=== PATIENT | male | born 1970 | race Caucasian/White ===

== ENCOUNTER 2023-11-25 10:51 | Observation (INO) ==
[2023-11-25] MEDS: SODIUM CHLORIDE 0.9% 1,000 ML IV ONE (11:19)
[2023-11-25] MEDS: KETOROLAC TROMETHAMINE 15 MG/ML VIAL IV STA ×2 (11:20→12:12)
[2023-11-25] MEDS: ONDANSETRON INJ 2 MG/ML 2 ML VIAL IV STA (11:20)
[2023-11-25 12:13] LABS: Basophils # (auto) 0.05 K/uL (0.00-0.20); Basophils % (auto) 0.3 %; Eosinophils # (auto) 0.01 K/uL (0.00-0.50); Eosinophils % (auto) 0.1 %; Hemoglobin 15.1 g/dl (14.0-18.0); Immature Granulocytes # (auto) 0.08 K/uL (0.01-0.20); Immature Granulocytes % (auto) 0.5 %; Lymphocytes # (auto) 1.65 K/uL (1.20-3.40); Lymphocytes % (auto) 9.7 %; Mean Corpuscular Hemoglobin 30.9 pg (25.0-34.0); Mean Corpuscular Hgb Conc 34.3 g/dL (32.0-36.0); Mean Platelet Volume 9.6 fL (9.4-12.4); Monocytes # (auto) 1.36 K/uL (0.11-0.59); Neutrophils # (auto) 13.94 K/uL (1.40-6.50); Neutrophils % (auto) 81.4 %; Platelet Count 270 K/uL (130-400); RDW Coefficient of Variation 12.4 % (11.5-14.5); RDW Standard Deviation 40.8 fL (36.4-46.3); Red Blood Count 4.89 M/uL (4.70-6.10); White Blood Count 17.09 K/ul (4.8-10.8)
[2023-11-25 12:15] LABS: Albumin Level 4.2 gm/dl (3.4-5.0); BUN Creatinine Ratio 10.4 (10-20); Bilirubin Direct 0.2 mg/dl (0-0.2); Bilirubin,Total 1.3 mg/dl (0.2-1.0); Calcium 8.9 mg/dl (8.6-10.3); Creatinine Clr Calc Pharmacy 82.8 ml/min; Est GFR (African American) 83.2 ml/min; Est GFR (Non-African American) 71.7 ml/min; Potassium 3.6 mmol/L (3.5-5.1); Total Protein 6.9 gm/dl (6.0-8.3)
[2023-11-25 12:51] LABS: Appearance Urine Clear (Clear); Bacteria Urine Automated None Seen (None Seen); Bilirubin Urine Negative (Negative); Blood Urine 3+ (Negative); Cast Urine Automated 0-2 /lpf (0-2); Color Urine Dark Yellow; Epithelial Cell Urine Auto 0-2 /hpf (0-2); Glucose Urine UA Negative (Negative); Ketones Urine 1+ (Negative); Leukocyte Esterase Urine 1+ (Negative); Nitrite Urine Negative (Negative); Protein Urine 1+ (Negative); RBC Urine Automated >20 /hpf (0-2); Specific Gravity Urine 1.023 (1.000-1.030); Urobilinogen Urine Negative (Negative); pH Urine 6.5 (4.5-7.5)
--- NOTE | 2023-11-25 13:03 | CT Scan Report ---
CT abd pelvis wo con CLINICAL HISTORY: L flank pain TECHNIQUE: Helical axial images of the abdomen and pelvis were obtained. Automated dose lowering tech niques and/or adjustment according to patient size were utilized for this exam. This exam was perfor med without intravenous contrast. CT DOSE: 1207.66 mGy.cm COMPARISON: None available at the time of this dictation. FINDINGS: Lower chest: No acute abnormality. Liver: Unremarkable. No focal lesions are seen. Gallbladder and biliary tree: No calcified gallstones. Normal caliber wall. No intra- or extrahepatic biliary ductal dilation. Pancreas: Unremarkable, no focal lesions. Spleen: Unremarkable. Adrenals: Unremarkable. Kidneys and ureters: Left hydronephrosis and hydroureter with a 5 mm stone in the proximal ureter. Ad ditional nonobstructive stones are seen. Bladder: Unremarkable. Reproductive organs: Unremarkable. Bowel: A hiatal hernia is seen. The appendix is normal. Lymph nodes Retroperitoneal: Unremarkable. Pelvic: Unremarkable. Mesenteric: Unremarkable. Peritoneum: Normal. Vessels: Atherosclerotic calcifications are seen. Abdominal wall: Bilateral fat-containing inguinal hernias are seen. Bones: Degenerative changes in the visualized spine. IMPRESSION: Left hydronephrosis and hydroureter with a 5 mm obstructive stone in the proximal ureter. ACT 112: Negative or not required by law. Electronically signed by: Feliz Pitts M.D. 11/25/2023 1:01 PM
--- NOTE | 2023-11-25 14:16 | History & Physical Report ---
Date of Service November 25, 2023 Assessment & Plan (1) Hydronephrosis with urinary obstruction due to ureteral calculus: Plan: This is a 53 y/o male with a history of nephrolithiasis who presents to the ED today with left flank pain x 2 days that is worsening. Work-up in the ED shows a 5 mm obstructing proximal ureteral stone with associated hydronephrosis and hydroureter. Creatinine was 1.15 but unclear what pt's baseline is since new to this system. Afebrile but noted to have a leukocytosis of 17.09, which may be reactive, may be related to early infection. - Admit to med surg - Urine culture pending - Empiric antibiotics with Cipro for now - Consult urology - will make NPO after midnight in case intervention required - Labs in the AM - CBC, BMP - Continue tamsulosin, anti-emetics - Pain control - Toradol ordered since worked well in the ED - Nicotine patch - smokes 1 PPD - Strain urine Plan Pt seen and reviewed with collaborating physician, Dr. Kunz. Plan of care discussed and as outlined above. Code status: full code DVT prophylaxis: SCDs Admit to med surg for urologic evaluation and pain control - failed trial of outpatient management Tianna Young PA-C History of Present Illness Chief Complaint: left flank pain, vomiting Primary Care Provider: Jonathan Davis DO This is a 53 y/o male with a history of nephrolithiasis who presents to the ED today with left flank pain x 2 days that is worsening. Pt started with pain in the left flank area two nights ago. He has a history of kidney stones twice in the past, which felt similar. Last episode was a few years ago. Denies prior urologic evaluation or need for intervention with prior stones. Due to the severity of the pain, he was seen in the ED at [place] yesterday and diagnosed with a 6 mm stone. He was sent home with naproxen BID, tamsulosin daily, and metoclopramide QID. He has been taking these as prescribed but reports minimal improvement in the pain, was up most of last night due to the severity of his symptoms. He reports multiple episodes of non-bloody emesis. He has noted chills but denies documented fever. Denies dysuria, hematuria, urinary frequency. Work- up in the ED revealed a 5 mm obstructing stone. His pain was improved with Toradol x 2 doses but due to the severity of the pain at home, he was referred for admission for symptom management and urologic evaluation. Home Medications Medication Instructions Recorded Confirmed Type metoclopramide HCl 5 mg tablet 5 mg PO QID 11/25/23 11/25/23 History naproxen 375 mg tablet 375 mg PO BID 11/25/23 11/25/23 History tamsulosin 0.4 mg capsule 0.4 mg PO DAILY 11/25/23 11/25/23 History Past Med/Surg History Problem List (Updated 11/25/23 @ 14:56 by Mike Vines MD) Hydronephrosis with urinary obstruction due to ureteral calculus (Acute) Medical History (Updated 11/25/23 @ 14:56 by Mike Vines MD) Nephrolithiasis Surgical History (Updated 11/25/23 @ 14:14 by Yisel Young PA-C) History of knee surgery History of shoulder surgery Family History (Updated 11/25/23 @ 14:15 by Yisel Young PA-C) Mother Nephrolithiasis Social History (Updated 11/25/23 @ 14:15 by Yisel Young PA-C) Smoking Status: Current every day smoker Tobacco Type: Cigarettes packs per day: 1; Hx Alcohol Use: Yes Alcohol Intake Frequency: 2-4 x/Month Hx Substance Use: Yes Non-Prescribed Medications: Marijuana Non-Prescribed Medications Comment: occasional Preferred Language: [place] current occupational status: employed 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 Feels Safe at Home: Yes Review of Systems Review of Systems: All systems reviewed & are unremarkable except as noted in HPI & below Constitutional: + chills and + fatigue; no fever and no sweats Ear, Nose, Mouth, Throat: no nasal congestion and no sore throat Respiratory: no cough and no dyspnea Cardiovascular: no chest pain, no palpitations and no syncope Gastrointestinal: + nausea and + vomiting; no diarrhea/loo se stools Genitourinary: + flank pain; no dysuria or no hematuria Musculoskeletal: + back pain; no neck pain Integumentary: no rash Neurologic: no dizziness, no headache(s) and no confusion Physical Exam Physical Exam: General: awake, alert, NAD HEENT: no scleral icterus, moist oral mucosa Neck: supple, trachea midline Heart: RRR, no M/G/R Lungs: CTA bilaterally, no W/R/R Abdomen: soft, +BS, mild left flank tenderness but o/w non-tender, no CVA tenderness Extremities: no pedal edema, distal pulses intact and equal Skin: warm, dry, no jaundice or rashes Neurologic: moving all extremities, no focal deficits, no confusion, no dysarthria Results & Data Results & Data Vital Signs (Past 12 Hours) Vital Signs Temp Pulse Pulse Resp BP BP Pulse Ox 11/25/23 14:00 76 21 11/25/23 14:00 116/88 11/25/23 14:00 116/88 11/25/23 13:57 74 20 11/25/23 13:48 78 17 11/25/23 13:30 81 17 11/25/23 13:30 143/93 H 11/25/23 13:30 143/93 H 11/25/23 13:21 83 16 11/25/23 13:12 70 18 11/25/23 13:07 156/97 H 11/25/23 13:07 156/97 H 11/25/23 13:06 88 19 11/25/23 13:03 71 17 96 11/25/23 12:54 69 16 97 11/25/23 12:52 71 18 172/103 H 96 11/25/23 12:45 72 16 96 11/25/23 12:32 62 11/25/23 12:21 73 18 91 11/25/23 12:15 65 12 98 11/25/23 12:00 71 17 100 11/25/23 11:51 68 14 90 11/25/23 11:33 68 15 98 11/25/23 11:21 73 15 98 11/25/23 11:12 79 18 96 11/25/23 11:03 66 17 97 11/25/23 10:52 100 11/25/23 10:52 36.6 C 66 18 192/113 H 99 O2 Del Method 11/25/23 14:00 11/25/23 14:00 11/25/23 14:00 11/25/23 13:57 11/25/23 13:48 11/25/23 13:30 11/25/23 13:30 11/25/23 13:30 11/25/23 13:21 11/25/23 13:12 11/25/23 13:07 11/25/23 13:07 11/25/23 13:06 11/25/23 13:03 11/25/23 12:54 11/25/23 12:52 Room Air 11/25/23 12:45 11/25/23 12:32 11/25/23 12:21 11/25/23 12:15 11/25/23 12:00 11/25/23 11:51 11/25/23 11:33 11/25/23 11:21 11/25/23 11:12 Room Air 11/25/23 11:03 11/25/23 10:52 11/25/23 10:52 Laboratory Results Lab Results 11/25/23 11/25/23 Range/Units 11:30 12:20 WBC 17.09 H (4.8-10.8) K/ul RBC 4.89 (4.70-6.10) M/uL Hgb 15.1 (14.0-18.0) g/dl Hct 44.0 (42.0-52.0) % MCV 90.0 (80.0-100.0) fL MCH 30.9 (25.0-34.0) pg MCHC 34.3 (32.0-36.0) g/dL RDW Std Deviation 40.8 (36.4-46.3) fL RDW Coeff of Luis Enrique 12.4 (11.5-14.5) % Plt Count 270 (130-400) K/uL MPV 9.6 (9.4-12.4) fL Immature Gran % (Auto) 0.5 % Neut % (Auto) 81.4 % Lymph % (Auto) 9.7 % [place] % (Auto) 8.0 % Eos % (Auto) 0.1 % Baso % (Auto) 0.3 % Neut # (Auto) 13.94 H (1.40-6.50) K/uL Lymph # (Auto) 1.65 (1.20-3.40) K/uL [place] # (Auto) 1.36 H (0.11-0.59) K/uL Eos # (Auto) 0.01 (0.00-0.50) K/uL Baso # (Auto) 0.05 (0.00-0.20) K/uL Immature Gran # (Auto) 0.08 (0.01-0.20) K/uL Sodium 136 (136-145) mmol/L Potassium 3.6 (3.5-5.1) mmol/L Chloride 105 (98-107) mmol/L Carbon Dioxide 23 (21-32) mmol/L Anion Gap 8 (3-11) BUN 12 (6-23) mg/dl Creatinine 1.15 (0.6-1.4) mg/dl Est Cr Clr Drug Dosing 82.8 ml/min Est GFR ( Amer) 83.2 ml/min Est GFR (Non-Af Amer) 71.7 ml/min BUN/Creatinine Ratio 10.4 (10-20) Glucose 120 H (70-99(Fasting)) mg/dl Calcium 8.9 (8.6-10.3) mg/dl Total Bilirubin 1.3 H (0.2-1.0) mg/dl Direct Bilirubin 0.2 (0-0.2) mg/dl AST 18 (13-39) U/L ALT 12 (7-52) U/L Alkaline Phosphatase 54 (34-104) U/L Total Protein 6.9 (6.0-8.3) gm/dl Albumin 4.2 (3.4-5.0) gm/dl Lipase 8 L (11-82) U/L Urine Color Dark Yellow Urine Appearance Clear (Clear) Urine pH 6.5 (4.5-7.5) Ur Specific [place] 1.023 (1.000-1.030) Urine Protein 1+ H (Negative) Urine Glucose (UA) Negative (Negative) Urine Ketones 1+ H (Negative) Urine Blood 3+ H (Negative) Urine Nitrite Negative (Negative) Urine Bilirubin Negative (Negative) Urine Urobilinogen Negative (Negative) Ur Leukocyte Esterase 1+ H (Negative) Urine WBC (Auto) 11-20 H (0-5) /hpf Urine RBC (Auto) >20 H (0-2) /hpf U Hyaline Cast (Auto) 0-2 (0-2) /lpf U Epithel Cells (Auto) 0-2 (0-2) /hpf Urine Bacteria (Auto) None Seen (None Seen) Diagnostic Findings Abdomen/Pelvis CT 11/25/23 11:36 CT abd pelvis wo con CLINICAL HISTORY: L flank pain TECHNIQUE: Helical axial images of the abdomen and pelvis were obtained. Automated dose lowering techniques and/or adjustment according to patient size were utilized for this exam. This exam was performed without intravenous cont rast. CT DOSE: 1207.66 mGy.cm COMPARISON: None available at the time of this dictation. FINDINGS: Lower chest: No acute abnormality. Liver: Unremarkable. No focal lesions are seen. Gallbladder and biliary tree: No calcified gallstones. Normal caliber wall. No intra- or extrahepatic biliary ductal dilation. Pancreas: Unremarkable, no focal lesions. Spleen: Unremarkable. Adrenals: Unremarkable. Kidneys and ureters: Left hydronephrosis and hydroureter with a 5 mm stone in the proximal ureter. Additional nonobstructive stones are seen. Bladder: Unremarkable. Reproductive organs: Unremarkable. Bowel: A hiatal hernia is seen. The appendix is normal. Lymph nodes Retroperitoneal: Unremarkable. Pelvic: Unremarkable. Mesenteric: Unremarkable. Peritoneum: Normal. Vessels: Atherosclerotic calcifications are seen. Abdominal wall: Bilateral fat-containing inguinal hernias are seen. Bones: Degenerative changes in the visualized spine. IMPRESSION: Left hydronephrosis and hydroureter with a 5 mm obstructive stone in the proximal ureter. ACT 112: Negative or not required by law. Electronically signed by: Feliz Pitts M.D. 11/25/2023 1:01 PM Medications Administered Discontinued Medications Sodium Chloride (Nss) 1,000 mls @ 999 mls/hr IV .Q1H1M ONE Stop: 11/25/23 12:12 Last Infusion: 11/25/23 12:41 Dose: Infused Documented By: Admin: 11/25/23 11:19 Dose: 999 mls/hr Documented By: JOEL Ketorolac Tromethamine (Ketorolac Tromethamine 15 Mg/Ml Vial) 15 mg IV NOW STA Stop: 11/25/23 11:13 Last Admin: 11/25/23 11:20 Dose: 15 mg Documented By: JOEL Ketorolac Tromethamine (Ketorolac Tromethamine 15 Mg/Ml Vial) 15 mg IV NOW STA Stop: 11/25/23 12:05 Last Admin: 11/25/23 12:12 Dose: 15 mg Documented By: JOEL Ondansetron HCl (Ondansetron Inj 2 Mg/Ml 2 Ml Vial) 4 mg IV NOW STA Stop: 11/25/23 11:13 Last Admin: 11/25/23 11:20 Dose: 4 mg Documented By: JOEL Supervising Physician Co-Signing Physician Notes Attending addendum: The patient was seen and examined in emergency room in presence of the He has been complaining of left flank and back pain for the last few days Was in [place] ER and was sent home Pain continued without any frequency or hematuria noted and does not have any fever and no chills Denies any other significant symptoms On examination Lying in bed comfortably following intravenous pain medication Hemodynamically stable Chest-clear to auscultation bilaterally Heart-S1-S2, regular Abdomen-tender in the left flank and no tenderness in the left renal angle, bowel sound present Extremities-negative for any edema [employer]-alert, awake and oriented x 3 His admission labs and imaging studies reviewed Had increased white count of 17,000 CT of the abdomen pelvis showed left hydronephrosis and hydroureter with 5 mm obstructive stone in the proximal ureter Patient started on intravenous ciprofloxacin and pain medication Urology has been consulted Agree with and take the full responsibility of the assessment and plan as outlined above by MILTON Moreno Dr
--- NOTE | 2023-11-25 14:56 | Emergency Department Note ---
History of Present Illness General Chief Complaint: Kidney Stone Stated Complaint: POSSIBLE KIDNEY STONE Time Seen by Provider: 11/25/23 10:58 History of Present Illness Provider Complaint: flank pain Onset (ago): 1 week(s) Pain Consistency: intermittent Location: L flank Radiation: LLQ Severity: severe Maximum Pain Intensity: 10 Current Pain Intensity: 9 Quality: + stabbing and + sharp Relieved By: + nothing Exacerbated By: + other (Urinating) Context: + history of similar episodes (Diagnosed with kidney stone at [place] [facility]); no foreign travel, no possible food poisoning, no sick contacts, no recent antibiotic use, no recent surgery/procedure or no recent injury Associated Symptoms: + nausea and + vomiting; no fever, no chills, no dysuria, no hematemesis, no melena, no hematuria, no chest pain and no breathing difficulty Home Medications Medication Instructions Recorded Confirmed Type metoclopramide HCl 5 mg tablet 5 mg PO QID 11/25/23 11/25/23 History naproxen 375 mg tablet 375 mg PO BID 11/25/23 11/25/23 History tamsulosin 0.4 mg capsule 0.4 mg PO DAILY 11/25/23 11/25/23 History Past Med/Surg History Problem List (Updated 11/25/23 @ 14:56 by Mike Vines MD) Hydronephrosis with urinary obstruction due to ureteral calculus (Acute) Medical History (Updated 11/25/23 @ 14:56 by Mike Vines MD) Nephrolithiasis Surgical History (Updated 11/25/23 @ 14:14 by Yisel Young PA-C) History of knee surgery History of shoulder surgery Family History (Updated 11/25/23 @ 14:15 by Yisel Young PA-C) Mother Nephrolithiasis Social History (Updated 11/25/23 @ 14:15 by Yisel Young PA-C) Smoking Status: Current every day smoker Tobacco Type: Cigarettes packs per day: 1; Hx Alcohol Use: Yes Alcohol Intake Frequency: 2-4 x/Month Hx Substance Use: Yes Non-Prescribed Medications: Marijuana Non-Prescribed Medications Comment: occasional Preferred Language: Monegasque current occupational status: employed 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 Feels Safe at Home: Yes Physical Exam 2 Vital Signs: Vital Signs - 24 hr 11/25/23 10:52 11/25/23 10:52 11/25/23 11:03 Temperature 36.6 C Temperature Source Oral Pulse Rate 66 66 Pulse Rate [Apical ] Pulse Rate from Sp O2 Sensor 68 Respiratory Rate 18 17 Blood Pressure 192/113 H Blood Pressure [Le ft Arm] Blood Pressure Taniya n 139 Blood Pressure Taniya n [Left Arm] Pulse Oximetry 99 100 97 Oxygen Delivery Me thod Sepsis Recent Feve r Within 48 Hours No Sepsis New/Unexpla ined Change in Men delicia Status N/A Sepsis Action Take n by Nursing No Action Required 11/25/23 11:12 11/25/23 11:21 11/25/23 11:33 Temperature Temperature Source Pulse Rate 79 73 68 Pulse Rate [Apical ] Pulse Rate from Sp O2 Sensor 74 67 Respiratory Rate 18 15 15 Blood Pressure Blood Pressure [Le ft Arm] Blood Pressure Taniya n Blood Pressure Taniya n [Left Arm] Pulse Oximetry 96 98 98 Oxygen Delivery Me thod Room Air Sepsis Recent Feve r Within 48 Hours Sepsis New/Unexpla ined Change in Men delicia Status Sepsis Action Take n by Nursing 11/25/23 11:51 11/25/23 12:00 11/25/23 12:15 Temperature Temperature Source Pulse Rate 68 71 65 Pulse Rate [Apical ] Pulse Rate from Sp O2 Sensor 68 70 64 Respiratory Rate 14 17 12 Blood Pressure Blood Pressure [Le ft Arm] Blood Pressure Taniya n Blood Pressure Taniya n [Left Arm] Pulse Oximetry 90 100 98 Oxygen Delivery Me thod Sepsis Recent Feve r Within 48 Hours Sepsis New/Unexpla ined Change in Men delicia Status Sepsis Action Take n by Nursing 11/25/23 12:21 11/25/23 12:32 11/25/23 12:45 Temperature Temperature Source Pulse Rate 73 62 72 Pulse Rate [Apical ] Pulse Rate from Sp O2 Sensor 74 72 Respiratory Rate 18 16 Blood Pressure Blood Pressure [Le ft Arm] Blood Pressure Taniya n Blood Pressure Taniya n [Left Arm] Pulse Oximetry 91 96 Oxygen Delivery Me thod Sepsis Recent Feve r Within 48 Hours Sepsis New/Unexpla ined Change in Men delicia Status Sepsis Action Take n by Nursing 11/25/23 12:52 11/25/23 12:54 11/25/23 13:03 Temperature Temperature Source Pulse Rate 69 71 Pulse Rate [Apical ] 71 Pulse Rate from Sp O2 Sensor 69 72 Respiratory Rate 18 16 17 Blood Pressure Blood Pressure [Le ft Arm] 172/103 H Blood Pressure Taniya n Blood Pressure Taniya n [Left Arm] 126 Pulse Oximetry 96 97 96 Oxygen Delivery Me thod Room Air Sepsis Recent Feve r Within 48 Hours Sepsis New/Unexpla ined Change in Men delicia Status Sepsis Action Take n by Nursing 11/25/23 13:06 11/25/23 13:07 11/25/23 13:07 Temperature Temperature Source Pulse Rate 88 Pulse Rate [Apical ] Pulse Rate from Sp O2 Sensor Respiratory Rate 19 Blood Pressure 156/97 H 156/97 H Blood Pressure [Le ft Arm] Blood Pressure Taniya n 109 109 Blood Pressure Taniya n [Left Arm] Pulse Oximetry Oxygen Delivery Me thod Sepsis Recent Feve r Within 48 Hours Sepsis New/Unexpla ined Change in Men delicia Status Sepsis Action Take n by Nursing 11/25/23 13:12 11/25/23 13:21 11/25/23 13:30 Temperature Temperature Source Pulse Rate 70 83 Pulse Rate [Apical ] Pulse Rate from Sp O2 Sensor Respiratory Rate 18 16 Blood Pressure 143/93 H Blood Pressure [Le ft Arm] Blood Pressure Taniya n 107 Blood Pressure Taniya n [Left Arm] Pulse Oximetry Oxygen Delivery Me thod Sepsis Recent Feve r Within 48 Hours Sepsis New/Unexpla ined Change in Men delicia Status Sepsis Action Take n by Nursing 11/25/23 13:30 11/25/23 13:30 11/25/23 13:48 Temperature Temperature Source Pulse Rate 81 78 Pulse Rate [Apical ] Pulse Rate from Sp O2 Sensor Respiratory Rate 17 17 Blood Pressure 143/93 H Blood Pressure [Le ft Arm] Blood Pressure Taniya n 107 Blood Pressure Taniya n [Left Arm] Pulse Oximetry Oxygen Delivery Me thod Sepsis Recent Feve r Within 48 Hours Sepsis New/Unexpla ined Change in Men delicia Status Sepsis Action Take n by Nursing 11/25/23 13:57 11/25/23 14:00 11/25/23 14:00 Temperature Temperature Source Pulse Rate 74 Pulse Rate [Apical ] Pulse Rate from Sp O2 Sensor Respiratory Rate 20 Blood Pressure 116/88 116/88 Blood Pressure [Le ft Arm] Blood Pressure Taniya n 114 114 Blood Pressure Taniya n [Left Arm] Pulse Oximetry Oxygen Delivery Me thod Sepsis Recent Feve r Within 48 Hours Sepsis New/Unexpla ined Change in Men delicia Status Sepsis Action Take n by Nursing 11/25/23 14:00 Temperature Temperature Source Pulse Rate 76 Pulse Rate [Apical ] Pulse Rate from Sp O2 Sensor Respiratory Rate 21 Blood Pressure Blood Pressure [Le ft Arm] Blood Pressure Taniya n Blood Pressure Taniya n [Left Arm] Pulse Oximetry Oxygen Delivery Me thod Sepsis Recent Feve r Within 48 Hours Sepsis New/Unexpla ined Change in Men delicia Status Sepsis Action Take n by Nursing Physical Exam: Physical Exam GENERAL: She is oriented to person, place, and time. She appears well-developed and well-nourished. She does not appear distressed. HENT: Exam performed. -Head: Normocephalic and atraumatic. -Right Ear: External ear normal. No mastoid erythema -Left Ear: External ear normal. No mastoid erythema -Mouth/Throat: The oropharynx is clear and moist. No trismus in the jaw. No dental abscesses or uvula swelling. No oropharyngeal exudate or tonsillar abscesses. EYES: Conjunctivae and EOM are normal.Right eye exhibits no discharge. Left eye exhibits no discharge. No scleral icterus. NECK: Normal range of motion. Neck supple. No JVD present. No tracheal deviation and normal range of motion present. CV: Normal rate, regular rhythm, normal heart sounds and intact distal pulses. There is no peripheral edema. Palpable radial pulses bue. PULM/CHEST: Effort normal and breath sounds normal. No respiratory distress. No stridor. She has no wheezes. She has no rales. -Chest Wall: She exhibits no tenderness. ABD: The abdomen is soft. Bowel sounds are normal. She has no distension. No mass is present. There is no tenderness. There is no rebound, no guarding, no Blake's sign and no tenderness at McBurney's point. Rovsig negative. Left- sided CVA tenderness. MUSC/SKEL: Normal range of motion. There is no peripheral edema, tenderness or deformity. NEURO: Motor and sensation grossly intact. SKIN: Skin is warm and dry. She is not diaphoretic. PSYCH: She has a normal mood and affect. Behavior is normal. Judgment and thought content normal. Course Course 1058: The patient was evaluated in room C1. A complete history and physical exam was performed Cardiac monitoring: An order was placed for continuous cardiac monitoring. The monitor shows a rate of 70 with sinus rhythm interpreted by me 1330: Vital signs stable. Labs with leukocytosis 17. Urinalysis not concerning for infection. Imaging shows kidney stone with hydroureter. Patient will be admitted for pain control to the hospitalist service and evaluation by urology. Administered Medications Discontinued Medications Sodium Chloride (Nss) 1,000 mls @ 999 mls/hr IV .Q1H1M ONE Stop: 11/25/23 12:12 Last Infusion: 11/25/23 12:41 Dose: Infused Documented By: Admin: 11/25/23 11:19 Dose: 999 mls/hr Documented By: JOEL Ketorolac Tromethamine (Ketorolac Tromethamine 15 Mg/Ml Vial) 15 mg IV NOW STA Stop: 11/25/23 11:13 Last Admin: 11/25/23 11:20 Dose: 15 mg Documented By: JOEL Ketorolac Tromethamine (Ketorolac Tromethamine 15 Mg/Ml Vial) 15 mg IV NOW STA Stop: 11/25/23 12:05 Last Admin: 11/25/23 12:12 Dose: 15 mg Documented By: JOEL Ondansetron HCl (Ondansetron Inj 2 Mg/Ml 2 Ml Vial) 4 mg IV NOW STA Stop: 11/25/23 11:13 Last Admin: 11/25/23 11:20 Dose: 4 mg Documented By: JOEL Medical Decision Making Laboratory Data Attestation: I reviewed the patient's lab results. 11/25/23 11:30 11/25/23 11:30 Lab Results 11/25/23 11/25/23 Range/Units 11:30 12:20 WBC 17.09 H (4.8-10.8) K/ul RBC 4.89 (4.70-6.10) M/uL Hgb 15.1 (14.0-18.0) g/dl Hct 44.0 (42.0-52.0) % MCV 90.0 (80.0-100.0) fL MCH 30.9 (25.0-34.0) pg MCHC 34.3 (32.0-36.0) g/dL RDW Std Deviation 40.8 (36.4-46.3) fL RDW Coeff of Luis Enrique 12.4 (11.5-14.5) % Plt Count 270 (130-400) K/uL MPV 9.6 (9.4-12.4) fL Immature Gran % (Auto) 0.5 % Neut % (Auto) 81.4 % Lymph % (Auto) 9.7 % [place] % (Auto) 8.0 % Eos % (Auto) 0.1 % Baso % (Auto) 0.3 % Neut # (Auto) 13.94 H (1.40-6.50) K/uL Lymph # (Auto) 1.65 (1.20-3.40) K/uL [place] # (Auto) 1.36 H (0.11-0.59) K/uL Eos # (Auto) 0.01 (0.00-0.50) K/uL Baso # (Auto) 0.05 (0.00-0.20) K/uL Immature Gran # (Auto) 0.08 (0.01-0.20) K/uL Sodium 136 (136-145) mmol/L Potassium 3.6 (3.5-5.1) mmol/L Chloride 105 (98-107) mmol/L Carbon Dioxide 23 (21-32) mmol/L Anion Gap 8 (3-11) BUN 12 (6-23) mg/dl Creatinine 1.15 (0.6-1.4) mg/dl Est Cr Clr Drug Dosing 82.8 ml/min Est GFR ( Amer) 83.2 ml/min Est GFR (Non-Af Amer) 71.7 ml/min BUN/Creatinine Ratio 10.4 (10-20) Glucose 120 H (70-99(Fasting)) mg/dl Calcium 8.9 (8.6-10.3) mg/dl Total Bilirubin 1.3 H (0.2-1.0) mg/dl Direct Bilirubin 0.2 (0-0.2) mg/dl AST 18 (13-39) U/L ALT 12 (7-52) U/L Alkaline Phosphatase 54 (34-104) U/L Total Protein 6.9 (6.0-8.3) gm/dl Albumin 4.2 (3.4-5.0) gm/dl Lipase 8 L (11-82) U/L Urine Color Dark Yellow Urine Appearance Clear (Clear) Urine pH 6.5 (4.5-7.5) Ur Specific [place] 1.023 (1.000-1.030) Urine Protein 1+ H (Negative) Urine Glucose (UA) Negative (Negative) Urine Ketones 1+ H (Negative) Urine Blood 3+ H (Negative) Urine Nitrite Negative (Negative) Urine Bilirubin Negative (Negative) Urine Urobilinogen Negative (Negative) Ur Leukocyte Esterase 1+ H (Negative) Urine WBC (Auto) 11-20 H (0-5) /hpf Urine RBC (Auto) >20 H (0-2) /hpf U Hyaline Cast (Auto) 0-2 (0-2) /lpf U Epithel Cells (Auto) 0-2 (0-2) /hpf Urine Bacteria (Auto) None Seen (None Seen) Imaging Data Radiologist's Impression: Abdomen/Pelvis CT 11/25/23 11:36 CT abd pelvis wo con CLINICAL HISTORY: L flank pain TECHNIQUE: Helical axial images of the abdomen and pelvis were obtained. Automated dose lowering techniques and/or adjustment according to patient size were utilized for this exam. This exam was performed without intravenous contrast. CT DOSE: 1207.66 mGy.cm COMPARISON: None available at the time of this dictation. FINDINGS: Lower chest: No acute abnormality. Liver: Unremarkable. No focal lesions are seen. Gallbladder and biliary tree: No calcified gallstones. Normal caliber wall. No intra- or extrahepatic biliary ductal dilation. Pancreas: Unremarkable, no focal lesions. Spleen: Unremarkable. Adrenals: Unremarkable. Kidneys and ureters: Left hydronephrosis and hydroureter with a 5 mm stone in the proximal ureter. Additional nonobstructive stones are seen. Bladder: Unremarkable. Reproductive organs: Unremarkable. Bowel: A hiatal hernia is seen. The appendix is normal. Lymph nodes Retroperitoneal: Unremarkable. Pelvic: Unremarkable. Mesenteric: Unremarkable. Peritoneum: Normal. Vessels: Atherosclerotic calcifications are seen. Abdominal wall: Bilateral fat-containing inguinal hernias are seen. Bones: Degenerative changes in the visualized spine. IMPRESSION: Left hydronephrosis and hydroureter with a 5 mm obstructive stone in the proximal ureter. ACT 112: Negative or not required by law. Electronically signed by: Feliz Pitts M.D. 11/25/2023 1:01 PM [facility] Narrative 1058: The patient was evaluated in room C1. A complete history and physical exam was performed Cardiac monitoring: An order was placed for continuous cardiac monitoring. The monitor shows a rate of 70 with sinus rhythm interpreted by me 1330: Vital signs stable. Labs with leukocytosis 17. Urinalysis not concerning for infection. Imaging shows kidney stone with hydroureter. Patient will be admitted for pain control to the hospitalist service and evaluation by urology. Impression & Plan Hydronephrosis with urinary obstruction due to ureteral calculus Discharge Plan Visit Data Chief Complaint: Kidney Stone Stated Complaint: POSSIBLE KIDNEY STONE ED Provider: Mike Vines Discharge Problem: Hydronephrosis with urinary obstruction due to ureteral calculus Patient Disposition: Admitted As Inpatient Forms Stand Alone Forms: [facility] Prescriptions Prescriptions: No Action naproxen 375 mg tablet 375 mg PO BID metoclopramide HCl 5 mg tablet 5 mg PO QID tamsulosin 0.4 mg capsule 0.4 mg PO DAILY Rx Instructions: daily for 7 days Referrals Referrals: Jonathan Davis DO [Primary Care Provider] -
[2023-11-25] MEDS ORDERED: Patient's ALLERGY Info needs ENTERED SCH (16:30)
[2023-11-25] MEDS: ONDANSETRON INJ 2 MG/ML 2 ML VIAL IV PRN (17:06)
[2023-11-25] MEDS: oxyCODONE HCL IR 5 MG TAB (IMMEDIATE RELEASE) PO PRN (17:22)
[2023-11-25] MEDS: CIPROFLOXACIN / D5W 400 MG/200 ML BAG IV SCH (17:26)
[2023-11-25] MEDS: NICOTINE 21 MG/24 HR TDSY TD SCH (17:54)
[2023-11-25] MEDS: KETOROLAC TROMETHAMINE 15 MG/ML VIAL IV PRN (18:40)
--- NOTE | 2023-11-25 19:28 | Urology Consultation ---
Date of Consultation November 25, 2023 Assessment & Plan (1) Hydronephrosis with urinary obstruction due to ureteral calculus: Patient has been admitted on the hospital service. From a urologic perspective we recommend the following: Provide analgesics Provide antiemetics Continue Flomax for expulsive therapy Due to abnormal urinalysis Cipro has been initiated. This can continue until culture data is available at which time antibiotics be further tailored based on these results IV fluids to be provided for hydration At the present time the patient is nontoxic-appearing. He is normotensive without tachycardia or fever. He also does not exhibit acute kidney injury, therefore I feel conservative management as outlined above should be employed for the present time Would recommend making the patient n.p.o. after midnight tonight. He will be reevaluated in the morning and the determination will be made if he requires any procedural intervention. History of Present Illness Reason for Consultation: Nephrolithiasis Attending Physician: Indira Kunz MD History of Present Illness This is a 53-year-old male who presented the emergency department secondary to left flank pain. Patient says that he has been having left flank pain radiating to his abdomen for approximately 2 days. He has had associated nausea and vomiting. He denies any palliative or provocative factors. He denies any fevers, shakes, or chills. He denies any dysuria or hematuria. Patient does note that approximate 2 years ago he did have a kidney stone which he was able to pass on his own and he has never required any procedural intervention. Since arrival to the hospital patient has had labs and imaging which independent reviewed. A CT scan of the abdomen pelvis showed the patient had left hydronephrosis secondary to a 5 mm obstructing kidney stone in the proximal ureter. Labs included CBC her white blood cell count was elevated 17.0. Hemoglobin and hematocrit as well as the platelet count were normal. Chemistry profile showed sodium and potassium as well as the BUN and creatinine were normal. Urinalysis did show 1+ leukocyte Estrace and 11-20 white blood cells per high-power field. The specimen was negative for nitrites and bacteria. At the time of my interview he was resting comfortably bed he was no distress Allergies Allergy/AdvReac Type Severity Reaction Status Date / Time No Known Allergies Allergy Unverified 11/25/23 16:45 Home Medications Medication Instructions Recorded Confirmed Type metoclopramide HCl 5 mg tablet 5 mg PO QID 11/25/23 11/25/23 History naproxen 375 mg tablet 375 mg PO BID 11/25/23 11/25/23 History tamsulosin 0.4 mg capsule 0.4 mg PO DAILY 11/25/23 11/25/23 History Patient History Medical History Nephrolithiasis Surgical History History of knee surgery History of shoulder surgery Family History Mother Nephrolithiasis Social History Smoking Status: Current every day smoker Tobacco Type: Cigarettes packs per day: 1; Cigarettes Per Day: 20; Second Hand Exposure: Yes; Do You Dip or Chew Tobacco: No; Tobacco Cessation Education Requested by Patient: No Hx Alcohol Use: Yes Alcohol type: beer Alcohol Intake Frequency: 2-4 x/Month Hx Substance Use: Yes Non-Prescribed Medications: Marijuana Non-Prescribed Medications Comment: occasional Last Used Substance: Unknown Preferred Language: Burmese Nursing Staffing Coordinator Required: No Beliefs That Will Affect Care: None Current Living Situation: Spouse current occupational status: employed 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 Other Information That Helps Us Care for You: No Feels Safe at Home: Yes Assistive Devices: Denture - Upper Review of Systems Review of Systems: All systems reviewed & are unremarkable except as noted in HPI & below Physical Exam Constitutional: WD/WN, vitals as above Eyes: no conjunctival abnormality ENMT: Ears: no hearing impairment and no external ear abnormality Mouth: no oropharynx abnormality Neck: trachea midline Respiratory: normal respiratory effort; no respiratory distress and no labored breathing Cardiovascular: Rate/Rhythm: regular rate and regular rhythm Gastrointestinal (Abdomen): Abdomen is soft and nonrigid. There is no distention. There is no rebound tenderness or guarding. There is no pain with palpation. Musculoskeletal: No calf tenderness Skin: no rashes Neurologic: moves all extremities Psychiatric: A+Ox3, euthymic affect Genitourinary: Slight CVA tenderness with percussion noted on the left. No CVA tenderness with percussion on the right Results & Data Vital Signs (Past 12 Hours) Vital Signs Temp Pulse Pulse Pulse Resp BP BP 11/25/23 17:58 166/96 H 11/25/23 16:34 11/25/23 16:20 175/81 H 11/25/23 16:05 36.9 C 73 18 172/95 H 11/25/23 16:05 36.9 C 73 18 11/25/23 15:12 68 19 11/25/23 15:00 144/89 H 11/25/23 14:00 76 21 11/25/23 14:00 116/88 11/25/23 14:00 116/88 11/25/23 13:57 74 20 11/25/23 13:48 78 17 11/25/23 13:30 81 17 11/25/23 13:30 143/93 H 11/25/23 13:30 143/93 H 11/25/23 13:21 83 16 11/25/23 13:12 70 18 11/25/23 13:07 156/97 H 11/25/23 13:07 156/97 H 11/25/23 13:06 88 19 11/25/23 13:03 71 17 11/25/23 12:54 69 16 11/25/23 12:52 71 18 172/103 H 11/25/23 12:45 72 16 11/25/23 12:32 62 11/25/23 12:21 73 18 11/25/23 12:15 65 12 11/25/23 12:00 71 17 11/25/23 11:51 68 14 11/25/23 11:33 68 15 11/25/23 11:21 73 15 11/25/23 11:12 79 18 11/25/23 11:03 66 17 11/25/23 10:52 11/25/23 10:52 36.6 C 66 18 192/113 H Pulse Ox O2 Del Method 11/25/23 17:58 11/25/23 16:34 Room Air 11/25/23 16:20 11/25/23 16:05 96 Room Air 11/25/23 16:05 96 Room Air 11/25/23 15:12 95 11/25/23 15:00 11/25/23 14:00 11/25/23 14:00 11/25/23 14:00 11/25/23 13:57 11/25/23 13:48 11/25/23 13:30 11/25/23 13:30 11/25/23 13:30 11/25/23 13:21 11/25/23 13:12 11/25/23 13:07 11/25/23 13:07 11/25/23 13:06 11/25/23 13:03 96 11/25/23 12:54 97 11/25/23 12:52 96 Room Air 11/25/23 12:45 96 11/25/23 12:32 11/25/23 12:21 91 11/25/23 12:15 98 11/25/23 12:00 100 11/25/23 11:51 90 11/25/23 11:33 98 11/25/23 11:21 98 11/25/23 11:12 96 Room Air 11/25/23 11:03 97 11/25/23 10:52 100 11/25/23 10:52 99 PG Care Time/CCT Total # of Minutes Spent Total Time Spent with Patient: Total time spent is greater than 50% in coordination of care (as documented) at patient's floor/unit and/or counseling patient: Coding Level of Care Code 53661 IN/OBS CONSULT LVL 5,80M Diagnoses Hydronephrosis with urinary obstruction due to ureteral calculus N13.2
[2023-11-26] MEDS: TAMSULOSIN HCL 0.4 MG CAP PO SCH (07:30)
[2023-11-26 08:05] LABS: Basophils # (auto) 0.06 K/uL (0.00-0.20); Basophils % (auto) 0.5 %; Eosinophils # (auto) 0.19 K/uL (0.00-0.50); Eosinophils % (auto) 1.7 %; Hematocrit (blood only) 41.7 % (42.0-52.0); Immature Granulocytes # (auto) 0.06 K/uL (0.01-0.20); Immature Granulocytes % (auto) 0.5 %; Lymphocytes % (auto) 26.3 %; Mean Corpuscular Hemoglobin 30.4 pg (25.0-34.0); Mean Corpuscular Hgb Conc 33.6 g/dL (32.0-36.0); Mean Corpuscular Volume 90.7 fL (80.0-100.0); Mean Platelet Volume 9.4 fL (9.4-12.4); Monocytes # (auto) 1.19 K/uL (0.11-0.59); Monocytes % (auto) 10.4 %; Neutrophils % (auto) 60.6 %; Platelet Count 227 K/uL (130-400); RDW Coefficient of Variation 12.5 % (11.5-14.5); RDW Standard Deviation 41.2 fL (36.4-46.3)
[2023-11-26 08:28] LABS: BUN Creatinine Ratio 11.5 (10-20); Calcium 8.4 mg/dl (8.6-10.3); Creatinine Clr Calc Pharmacy 103.9 ml/min; Est GFR (African American) 113.4 ml/min; Est GFR (Non-African American) 97.8 ml/min; Magnesium 2.3 mg/dl (1.7-2.4); Phosphorus 2.4 mg/dl (2.5-4.9); Potassium 3.4 mmol/L (3.5-5.1)
[2023-11-26] MEDS: POTASSIUM CHLORIDE CRTAB 20 MEQ TABCR PO STA (08:59)
--- NOTE | 2023-11-26 09:21 | Urology Progress Note ---
Date of Service November 26, 2023 Assessment & Plan (1) Hydronephrosis with urinary obstruction due to ureteral calculus: Plan: Follow-up of left proximal ureteral stone He is afebrile, hemodynamically stable Labs reviewedcreatinine 0.87, WBC downtrending (11.4) Urine culture is pending He reports left flank pain improved since arrival, adequately controlled We discussed options for stone management including trial of passage versus surgical intervention We discussed surgical intervention with left ureteral stent placement while inpatient and stone treatment at a later date versus outpatient surgical options Ureteral stents were discussed in detail After discussion, he is leaning toward outpatient stone management He would like to have a KUB done today to check stone locationordered Will keep n.p.o. for now and reassess after imaging Patient reassessed after KUB imaging KUB reviewed and shows left proximal ureteral stone Patient reports increased flank pain since earlier this morning He wishes to proceed with left ureteral stent placement today Risks and benefits of procedure to be reviewed with patient by Dr. Randle Keep NPO for procedure, continue antibiotics will follow Admission and Anticipated Discharge Date Admission Date: November 25, 2023 Subjective Patient seen and examined at bedside this morning Pain adequately controlled Denies nausea or vomiting Voiding without difficulty No fever or chills Reports spontaneously passing stones in the past Review of Systems Constitutional: as per Subjective / HPI Genitourinary: + as per Subjective / HPI Physical Exam Constitutional: well developed and well nourished; no acute distress Respiratory: normal respiratory effort; no respiratory distress and no labored breathing Gastrointestinal (Abdomen): Inspection/Auscultation: abdomen normal to inspection Musculoskeletal: Head/Neck/Chest: normocephalic Neurologic: moves all extremities and awake Psychiatric: Orientation: alert and oriented x 3 Results & Data Vital Signs (Past 12 Hours) Vital Signs Temp Pulse Resp BP Pulse Ox O2 Del Method 11/26/23 07:25 36.8 C 61 18 137/79 95 Room Air PG Care Time/CCT Total # of Minutes Spent Total Time Spent with Patient: Total time spent is greater than 50% in coordination of care (as documented) at patient's floor/unit and/or counseling patient: Coding Level of Care Code 55174 SUB INP/OBS CARE 2/35MIN Diagnoses Hydronephrosis with urinary obstruction due to ureteral calculus N13.2
--- NOTE | 2023-11-26 11:27 | Hospitalist Progress Note ---
Date of Service November 26, 2023 Assessment & Plan (1) Hydronephrosis with urinary obstruction due to ureteral calculus: Plan: This is a 53 y/o male with a history of nephrolithiasis who presents to the ED with left flank pain x 2 days that is worsening. Work-up in the ED shows a 5 mm obstructing proximal ureteral stone with associated hydronephrosis and hydroureter. Creatinine was 1.15 but unclear what pt's baseline is since new to this system. Afebrile but noted to have a leukocytosis of 17.09, which may be reactive, may be related to early infection. - WBC down from 17 k to 11k - Cr 0.8 down from 1.1 - Urine culture pending - Empiric antibiotics with Cipro for now - cont. IVF - Continue tamsulosin, anti-emetics - Pain control - Strain urine - Consulted urology - discussing stents placement vs. outpt management. For now, ordered KUB - pending Plan Tobacco use Nicotine patch - smokes 1 PPD Code status: full code DVT prophylaxis: SCDs Admitted to med surg for urologic evaluation and pain control - failed trial of outpatient management Admission and Anticipated Discharge Date Admission Date: November 25, 2023 Subjective Pt seen in follow up of L ureteral stone, and hydronephrosis Currently laying in bed , says he felt better overnight but now again having a lot of pain. Reports having dark urine but no hematuria. No fever, chills. Pain is located in left flank. Kirti by urology earlier - KUB ordered Review of Systems Review of Systems: All systems reviewed & are unremarkable except as noted in Subjective Physical Exam Physical Exam: General: awake, alert, NAD HEENT: no scleral icterus, moist oral mucosa Neck: supple Heart: RRR, no M/G/R Lungs: CTA bilaterally, no W/R/R Abdomen: soft, +BS, + left CVA tenderness Extremities: no LE edema, moves extremities Skin: warm, dry Neurologic: awake, alert, oriented, speech fluent, no facial asymmetry, moving all extremities Results & Data Results & Data Vital Signs (Past 12 Hours) Vital Signs Temp Pulse Resp BP Pulse Ox O2 Del Method 11/26/23 07:25 36.8 C 61 18 137/79 95 Room Air Laboratory Results 11/26/23 11/25/23 11/25/23 Range/Units 07:48 12:20 11:30 WBC 11.40 H 17.09 H (4.8-10.8) K/ul RBC 4.60 L 4.89 (4.70-6.10) M/uL Hgb 14.0 15.1 (14.0-18.0) g/dl Hct 41.7 L 44.0 (42.0-52.0) % MCV 90.7 90.0 (80.0-100.0) fL MCH 30.4 30.9 (25.0-34.0) pg MCHC 33.6 34.3 (32.0-36.0) g/dL RDW Std Deviation 41.2 40.8 (36.4-46.3) fL RDW Coeff of Luis Enrique 12.5 12.4 (11.5-14.5) % Plt Count 227 270 (130-400) K/uL MPV 9.4 9.6 (9.4-12.4) fL Immature Gran % (Auto) 0.5 0.5 % Neut % (Auto) 60.6 81.4 % Lymph % (Auto) 26.3 9.7 % [place] % (Auto) 10.4 8.0 % Eos % (Auto) 1.7 0.1 % Baso % (Auto) 0.5 0.3 % Neut # (Auto) 6.90 H 13.94 H (1.40-6.50) K/uL Lymph # (Auto) 3.00 1.65 (1.20-3.40) K/uL [place] # (Auto) 1.19 H 1.36 H (0.11-0.59) K/uL Eos # (Auto) 0.19 0.01 (0.00-0.50) K/uL Baso # (Auto) 0.06 0.05 (0.00-0.20) K/uL Immature Gran # (Auto) 0.06 0.08 (0.01-0.20) K/uL Sodium 137 136 (136-145) mmol/L Potassium 3.4 L 3.6 (3.5-5.1) mmol/L Chloride 105 105 (98-107) mmol/L Carbon Dioxide 27 23 (21-32) mmol/L Anion Gap 5 8 (3-11) BUN 10 12 (6-23) mg/dl Creatinine 0.87 1.15 (0.6-1.4) mg/dl Est Cr Clr Drug Dosing 103.9 82.8 ml/min Est GFR ( Amer) 113.4 83.2 ml/min Est GFR (Non-Af Amer) 97.8 71.7 ml/min BUN/Creatinine Ratio 11.5 10.4 (10-20) Glucose 102 H 120 H (70-99(Fasting)) mg/dl Calcium 8.4 L 8.9 (8.6-10.3) mg/dl Phosphorus 2.4 L (2.5-4.9) mg/dl Magnesium 2.3 (1.7-2.4) mg/dl Total Bilirubin 1.3 H (0.2-1.0) mg/dl Direct Bilirubin 0.2 (0-0.2) mg/dl AST 18 (13-39) U/L ALT 12 (7-52) U/L Alkaline Phosphatase 54 (34-104) U/L Total Protein 6.9 (6.0-8.3) gm/dl Albumin 4.2 (3.4-5.0) gm/dl Lipase 8 L (11-82) U/L Urine Color Dark Yellow Urine Appearance Clear (Clear) Urine pH 6.5 (4.5-7.5) Ur Specific [place] 1.023 (1.000-1.030) Urine Protein 1+ H (Negative) Urine Glucose (UA) Negative (Negative) Urine Ketones 1+ H (Negative) Urine Blood 3+ H (Negative) Urine Nitrite Negative (Negative) Urine Bilirubin Negative (Negative) Urine Urobilinogen Negative (Negative) Ur Leukocyte Esterase 1+ H (Negative) Urine WBC (Auto) 11-20 H (0-5) /hpf Urine RBC (Auto) >20 H (0-2) /hpf U Hyaline Cast (Auto) 0-2 (0-2) /lpf U Epithel Cells (Auto) 0-2 (0-2) /hpf Urine Bacteria (Auto) None Seen (None Seen) Medications Administered Current Inpatient Medications Ciprofloxacin (Cipro / D5w) 400 mg in 200 mls @ 100 mls/hr IV Q12H [facility]; Protocol Stop: 12/05/23 17:14 Last Infusion: 11/26/23 07:21 Dose: Infused Sodium Chloride (Nss) 1,000 mls @ 125 mls/hr IV .Q8H [facility] Stop: 12/26/23 11:29 Ketorolac Tromethamine (Ketorolac Tromethamine 15 Mg/Ml Vial) 15 mg IV Q6H PRN PRN Reason: Pain Stop: 11/30/23 16:12 Last Admin: 11/26/23 07:29 Dose: 15 mg Miscellaneous (Remove Nicoderm Patch) 1 each N/A DAILY@0859 [facility] Stop: 12/26/23 08:58 Last Admin: 11/26/23 07:30 Dose: 1 each Morphine Sulfate (Morphine Sulfate 4 Mg/Ml 1 Ml Carp\Vial) 4 mg IV Q6H PRN PRN Reason: Pain Stop: 12/09/23 18:06 Nicotine (Nicotine 21 Mg/24 Hr Tdsy) [facility] Stop: 12/25/23 17:14 Last Admin: 11/26/23 07:30 Dose: 1 patch Ondansetron HCl (Ondansetron Inj 2 Mg/Ml 2 Ml Vial) 4 mg IV Q6H PRN PRN Reason: Nausea Stop: 12/25/23 16:12 Last Admin: 11/25/23 17:06 Dose: 4 mg Oxycodone HCl (Oxycodone Hcl Ir 5 Mg Tab (Immediate Release)) 5 mg PO Q4H PRN PRN Reason: Pain Stop: 12/09/23 17:13 Last Admin: 11/26/23 09:55 Dose: 5 mg Tamsulosin HCl (Tamsulosin Hcl 0.4 Mg Cap) 0.4 mg PO QAM [facility] Stop: 12/26/23 08:59 Last Admin: 11/26/23 07:30 Dose: 0.4 mg
[2023-11-26] MEDS: SODIUM CHLORIDE 0.9% 1,000 ML IV SCH (11:35)
[2023-11-26] MEDS: MoRPHine SULFATE 4 MG/ML 1 ML CARP\\VIAL IV PRN (11:38)
--- NOTE | 2023-11-26 13:48 | XRay Report ---
KUB HISTORY: Left nephrolithiasis Left proximal stone COMPARISON: CT 11/25/2023 FINDINGS: Mild gaseous distention of the large bowel with nonobstructive bowel gas pattern. Renal sha dows are obscured by bowel gas. The patient's known punctate left renal calculi are not visualized. Unchanged positioning of the 7 mm left renal calculus at the level of L3-L4. No pneumoperitoneum or p neumatosis. No fracture. IMPRESSION: 1. Unchanged positioning of the 7 mm left ureteral calculus at the level of L3-L4. 2. The patient's known left nephrolithiasis is obscured by bowel gas. ACT 112: Negative or not required by law. The above report was generated using voice recognition software. It may contain grammatical, syntax o r spelling errors. Electronically signed by: Nehemias Whittaker M.D. 11/26/2023 1:46 PM
--- NOTE | 2023-11-26 15:42 | Anesthesiology Consultation ---
Date of Service November 26, 2023 Assessment & Plan Chart Review Chart Review: Acceptable Risk for Surgery and Patient NOT seen in Pre Admission Testing History Surgery Operation Date: 11/26/23 13:05 Proposed Procedures p Cystoscopy Left Ureteral Stent Placement - Francisco Javier Randle DO Height/Weight Height: 5 ft 7 in Weight: 90 kg Allergies Allergy/AdvReac Type Severity Reaction Status Date / Time No Known Allergies Allergy Unverified 11/25/23 16:45 Medications Home Medications Medication Instructions Recorded Confirmed Last Taken metoclopramide HCl 5 mg tablet 5 mg PO QID 11/25/23 11/25/23 11/25/23 naproxen 375 mg tablet 375 mg PO BID 11/25/23 11/25/23 11/25/23 tamsulosin 0.4 mg capsule 0.4 mg PO DAILY 11/25/23 11/25/23 11/25/23 Active Medications Generic Name Dose Route Start Last Admin Trade Name Freq PRN Reason Stop Dose Admin Ciprofloxacin 400 mg in 200 mls @ 100 mls/hr 11/25/23 17:15 11/26/23 07:21 Cipro / D5w IV 12/05/23 17:14 Infused Q12H [facility] Infusion Protocol Sodium Chloride 1,000 mls @ 125 mls/hr 11/26/23 11:30 11/26/23 11:35 Nss IV 12/26/23 11:29 125 mls/hr .Q8H [facility] Administration Ketorolac Tromethamine 15 mg 11/25/23 16:13 11/26/23 13:36 Ketorolac Tromethamine 15 Mg/Ml Vial IV 11/30/23 16:12 15 mg Q6H PRN Administration Pain Miscellaneous 1 each 11/26/23 08:59 11/26/23 07:30 Remove Nicoderm Patch N/A 12/26/23 08:58 1 each DAILY@0859 [facility] Administration Morphine Sulfate 4 mg 11/25/23 18:07 11/26/23 11:38 Morphine Sulfate 4 Mg/Ml 1 Ml Carp\Vial IV 12/09/23 18:06 4 mg Q6H PRN Administration Pain Nicotine 1 patch 11/25/23 17:15 11/26/23 07:30 Nicotine 21 Mg/24 Hr Tdsy TD 12/25/23 17:14 1 patch QAM [facility] Administration Ondansetron HCl 4 mg 11/25/23 16:13 11/25/23 17:06 Ondansetron Inj 2 Mg/Ml 2 Ml Vial IV 12/25/23 16:12 4 mg Q6H PRN Administration Nausea Oxycodone HCl 5 mg 11/25/23 17:14 11/26/23 15:13 Oxycodone Hcl Ir 5 Mg Tab (Immediate Release) PO 12/09/23 17:13 5 mg Q4H PRN Administration Pain Tamsulosin HCl 0.4 mg 11/26/23 09:00 11/26/23 07:30 Tamsulosin Hcl 0.4 Mg Cap PO 12/26/23 08:59 0.4 mg QAM [facility] Administration Past Medical History Medical History Nephrolithiasis Past Family History Family History Mother Nephrolithiasis Past Surgical History Surgical History History of knee surgery History of shoulder surgery Social History Smoking Status: Current every day smoker Smoking cigarettes per day: 20 Do You Dip or Chew Tobacco: No Hx Alcohol Use: Yes Alcohol type: beer alcohol intake frequency: a few times a month Hx Substance Use: Yes substance use type: marijuana Last Used Substance: Unknown Physical Exam Vital Signs Last Vital Signs Temp 36.9 C 11/26/23 15:33 Pulse 82 11/26/23 15:33 Resp 18 11/26/23 15:33 BP 177/84 H 11/26/23 15:33 Pulse Ox 94 11/26/23 15:33 O2 Del Method Room Air 11/26/23 15:33 Testing Laboratory Results 11/26/23 07:48 11/26/23 07:48 Urine Color Dark Yellow 11/25/23 12:20 Urine Appearance Clear (Clear) 11/25/23 12:20 Urine pH 6.5 (4.5-7.5) 11/25/23 12:20 Ur Specific [place] 1.023 (1.000-1.030) 11/25/23 12:20 Urine Protein 1+ (Negative) H 11/25/23 12:20 Urine Glucose (UA) Negative (Negative) 11/25/23 12:20 Urine Ketones 1+ (Negative) H 11/25/23 12:20 Urine Nitrite Negative (Negative) 11/25/23 12:20 Ur Leukocyte Esterase 1+ (Negative) H 11/25/23 12:20 Urine WBC (Auto) 11-20 /hpf (0-5) H 11/25/23 12:20 Urine RBC (Auto) >20 /hpf (0-2) H 11/25/23 12:20 U Hyaline Cast (Auto) 0-2 /lpf (0-2) 11/25/23 12:20 U Epithel Cells (Auto) 0-2 /hpf (0-2) 11/25/23 12:20 Urine Bacteria (Auto) None Seen (None Seen) 11/25/23 12:20 11/25/23 12:20 Urine Culture - Preliminary Urine,Clean Catch Pin-point growth present, reincubating.
[2023-11-26] MEDS ORDERED: LIDOCAINE 2% 2 ML VIAL/AMP(20MG/ML) INFIL ONE (16:58)
[2023-11-26] MEDS ORDERED: PROPOFOL IV EMULSION 10 MG/ML 20 ML VIAL IV ONE (16:58)
[2023-11-26] MEDS ORDERED: MIDAZOLAM HCL 1 MG/ML 2ML VIAL ONE (16:59)
[2023-11-26] MEDS ORDERED: fentaNYL citrate PF 100 MCG/2 ML VIAL ONE (16:59)
[2023-11-26] MEDS ORDERED: fentaNYL citrate PF 100 MCG/2 ML VIAL IV PRN (17:08)
[2023-11-26] MEDS ORDERED: HYDROmorphone INJ 1 MG/ML SYRINGE IV PRN (17:08)
[2023-11-26] MEDS ORDERED: ePHEDrine sulfate 50 MG/ML AMP IV PRN (17:08)
[2023-11-26] MEDS ORDERED: ONDANSETRON INJ 2 MG/ML 2 ML VIAL IV PRN (17:08)
[2023-11-26] MEDS ORDERED: ATROPINE SULFATE 0.1 MG/ML 10ML SYR IV PRN (17:08)
[2023-11-26] MEDS: DIATRIZOATE MEGLUMINE 30% 100ML VIAL INSTIL ONE (17:48)
--- NOTE | 2023-11-26 17:52 | Operative Report ---
PG Post Operative Report Pre & Post Diagnosis Operation Date: 11/26/23 13:05 Pre-Op Diagnosis: Hydronephrosis with urinary obstruction due to ureteral calculus Post-Op Diagnosis: Hydronephrosis with urinary obstruction due to ureteral calculus I identified the patient and participated in the time-out.: Yes Procedure Operation Date: 11/26/23 13:05 Actual Procedures p Cystoscopy with left Retrograde Pyelogram, Left Ureteral Stent Placement(Left) - Francisco Javier Randle DO Surgeon Francisco Javier Randle, II, DO [employer] Preservation Inspector None Estimated Blood Loss 1 Findings Consistent with Post-Op Diagnosis Stent placed in good position. Specimens None Drains 6 Fr Multilength Anesthesia Type MAC Complications none Disposition Disposition: Recovery Room Indications Patient with obstruction. Risks and benefits discussed at length. Description of Procedure Patient was consented and brought back to the operating room. Patient was placed under anesthesia in the supine position and moved to the dorsal lithotomy position. Patient was prepped and draped in the regular sterile fashion. A time out was completed. A 30degree Cystoscope was placed into the bladder and the entire bladder was examined. The UO's were identified. The UO was cannulized with a catheter and a retrograde pyelogram was completed. A wire was then placed. With the wire in place, a 6 Fr Double J stent was placed. It was confirmed with fluoroscopy. With the stent in place, the bladder was emptied. The scope was removed. The patient was cleaned, aroused from anesthesia, and transferred to the pacu in stable condition having tolerated the procedure well with no complications. I was present and participated in all aspects of the procedure. The patient will be monitored in the PACU until transferred. Plan to set patient up with stone treatment in next weeks. Plan to remove stent after treatment. I attest to the content of the Intraoperative Record and any orders documented therein. Any exceptions are noted below.
--- NOTE | 2023-11-26 18:12 | Fluoroscopy Report ---
FL retrograde includes kub CLINICAL HISTORY: CYSTO COMPARISON STUDY: None. FLUOROSCOPY TIME: 14 seconds FLUOROSCOPY IMAGES: 3 Ka,r: 2.8 mGy FINDINGS: Retrograde opacification of the left renal collecting system with placement of a left urete ral stent. The ureteral stent appears in good position. IMPRESSION: Fluoroscopic assistance as above. ACT 112: Negative or not required by law. Electronically signed by: Surendra Love M.D. 11/26/2023 6:11 PM
--- NOTE | 2023-11-26 19:08 | Anesthesiology Progress Note ---
Date of Service November 26, 2023 Anesthesia Post Procedure Vital Signs Vital Signs: Temp Pulse Pulse Pulse Resp BP Pulse Ox 11/26/23 19:01 36.8 C 68 16 157/90 H 95 11/26/23 18:36 36.5 C 65 14 154/88 H 95 11/26/23 18:15 37.1 C 67 14 133/81 98 11/26/23 18:05 65 12 131/82 97 11/26/23 17:56 37.1 C 71 15 137/82 95 11/26/23 17:00 37.0 C 73 18 157/87 H 96 11/26/23 15:33 36.9 C 82 18 177/84 H 94 11/26/23 07:25 36.8 C 61 18 137/79 95 11/25/23 20:33 37.0 C 69 18 163/78 H 96 O2 Del Method O2 Flow Rate 11/26/23 19:01 Room Air 11/26/23 18:36 Room Air 11/26/23 18:15 Room Air 11/26/23 18:05 Nasal Cannula 2 11/26/23 17:56 Nasal Cannula 4 11/26/23 17:00 Room Air 11/26/23 15:33 Room Air 11/26/23 07:25 Room Air 11/25/23 20:33 Room Air Pain Intensity Left Lower Back: Pain Intensity: 2 Transfer of Care Handoff Completed per policy Notes Mental Status: alert / awake / arousable and participated in evaluation Patient Amnestic to Procedure: Yes Nausea / Vomiting: adequately controlled Pain: adequately controlled Airway Patency, RR, SpO2: stable & adequate BP & HR: stable & adequate Hydration State: stable & adequate Anesthetic Complications: no major complications apparent and Pt Satisfied with anesthetic care
[2023-11-27 06:30] LABS: Hematocrit (blood only) 37.4 % (42.0-52.0); Hemoglobin 12.5 g/dl (14.0-18.0); Mean Corpuscular Hemoglobin 30.6 pg (25.0-34.0); Mean Corpuscular Hgb Conc 33.4 g/dL (32.0-36.0); Mean Corpuscular Volume 91.4 fL (80.0-100.0); Mean Platelet Volume 9.8 fL (9.4-12.4); Platelet Count 233 K/uL (130-400); RDW Coefficient of Variation 12.4 % (11.5-14.5); RDW Standard Deviation 41.2 fL (36.4-46.3); Red Blood Count 4.09 M/uL (4.70-6.10); White Blood Count 8.77 K/ul (4.8-10.8)
[2023-11-27 06:47] LABS: BUN Creatinine Ratio 12.7 (10-20); Creatinine Clr Calc Pharmacy 114.4 ml/min; Est GFR (Non-African American) 101.8 ml/min; Magnesium 2.1 mg/dl (1.7-2.4); Phosphorus 2.5 mg/dl (2.5-4.9); Potassium 3.4 mmol/L (3.5-5.1)
[2023-11-27 07:52] VITALS: RESP 16
[2023-11-27] MEDS: POTASSIUM CHLORIDE CRTAB 20 MEQ TABCR PO STA (08:30)
--- NOTE | 2023-11-27 10:20 | Urology Progress Note ---
Date of Service November 27, 2023 Assessment & Plan (1) Hydronephrosis with urinary obstruction due to ureteral calculus: Plan - POD #1 s/p cystoscopy and left ureteral stent placement - Feeling much better today, tolerating the stent with minimal bother - Afebrile and hemodynamically stable - Labs today- WBC 8.77, Cr 0.79. - Urine culture prelim pin-point growth, reincubating. On Ciprofloxacin. - No further intervention warranted. - Continue antibiotics and follow culture. - Okay to d/c from perspective when medically stable. - Recommend d/c with course of PO antibiotics per final culture, Tamsulosin, and prn pain medication for stent management. - Will arrange outpatient follow-up with our service. - Expected clinical course reviewed with patient, all questions were answered. - will sign-off. Please call with any further questions or concerns. Admission and Anticipated Discharge Date Admission Date: November 25, 2023 Subjective Pt seen at bedside this AM Awake, resting in bed on arrival No acute distress Feeling much better today Tolerating the stent with minimal bother Denies f/c/n/v Voiding without issue Review of Systems Constitutional: as per Subjective / HPI Gastrointestinal: as per Subjective / HPI Genitourinary: + as per Subjective / HPI Physical Exam Constitutional: no acute distress Respiratory: no respiratory distress and no labored breathing Neurologic: moves all extremities and awake Psychiatric: A+Ox3, euthymic affect Results & Data Vital Signs (Past 12 Hours) Vital Signs Temp Pulse Resp BP Pulse Ox O2 Del Method 11/27/23 08:00 Room Air 11/27/23 07:49 36.6 C 58 L 16 157/51 H 95 Room Air 11/27/23 03:56 36.8 C 61 18 151/82 H 96 Room Air 11/27/23 00:11 36.9 C 66 18 162/87 H 96 Room Air PG Care Time/CCT Total # of Minutes Spent Total Time Spent with Patient: Total time spent is greater than 50% in coordination of care (as documented) at patient's floor/unit and/or counseling patient: Coding Level of Care Code 72994 SUB INP/OBS CARE 2/35MIN Diagnoses Hydronephrosis with urinary obstruction due to ureteral calculus N13.2
[2023-11-27 11:43] VITALS: BP 157/89; TEMP 98.2; O2SAT 96
--- NOTE | 2023-11-27 13:48 | Discharge Summary ---
Discharge Summary Date of Service November 27, 2023 Principal Dx & Hospital Course #1 = Principal Diagnosis (1) Hydronephrosis with urinary obstruction due to ureteral calculus: Plan Pt is a 53 y/o male with a PMHx significant for history of nephrolithiasis who presented to the ED with left flank pain x 2 days that was worsening. Work-up in the ED showed a 5 mm obstructing proximal ureteral stone with associated hydronephrosis and hydroureter. Creatinine was 1.15, afebrile but noted to have a leukocytosis of 17.09. Obstructive Uropathy Hx of nephrolithiasis Hydronephrosis, left WBC of 17K on admission Afebrile without tachycardia or tachypnea, not septic CT abd/pelvis noting L hydronephrosis and hydroureter with 5mm obstructing stone KUB noting 7mm stone UA suggestive of infection Urine culture eventually grew 2 orgs- gram positive cocci and "gardnerella-like" bacilli. Pt asymptomatic. -case discussed with ID specialist Dr Lee Hayes on 11/26 before discharge -advised reasonable to treat with 7 day course of oral metronidazole 500mg BID for "gardnerella-like" bacilli noted. Possible colonization. Advised to inform pt to have partner tested as well and treated if needed. -ciprofloxacin for UTI Urology was consulted- pt s/p L stent placement on 11/25. Continue Flomax, abx. Noted pt stable for discharge Pt discharged with 2.5 more days of ciprofloxacin (received 2.5 days of treatment in the hospital) and metronidazole as noted above. Advised to notify sexual partner of possible BV infection. Also advised to continue with flomax, prn ibuprofen for pain after discussion with pt to avoid narcotics. Cr 0.79 and WBC improved to 8K on discharge. Close Urology and PCP followup after discharge. Hypokalemia Hypophosphatemia Repleted as needed Notes For Next Care Provider please ensure Urology follow up Medication Changes From Visit ciprofloxacin 500mg BID x 2.5 more days metronidazole 500mg BID x 7 days for treatment of gardnerella-like bacteria in urine culture ibuprofen 600mg TID PRN for pain Admission HPI Per Admitting Provider This is a 53 y/o male with a history of nephrolithiasis who presents to the ED today with left flank pain x 2 days that is worsening. Pt started with pain in the left flank area two nights ago. He has a history of kidney stones twice in the past, which felt similar. Last episode was a few years ago. Denies prior urologic evaluation or need for intervention with prior stones. Due to the severity of the pain, he was seen in the ED at [facility] yesterday and diagnosed with a 6 mm stone. He was sent home with naproxen BID, tamsulosin daily, and metoclopramide QID. He has been taking these as prescribed but reports minimal improvement in the pain, was up most of last night due to the severity of his symptoms. He reports multiple episodes of non-bloody emesis. He has noted chills but denies documented fever. Denies dysuria, hematuria, urinary frequency. Work- up in the ED revealed a 5 mm obstructing stone. His pain was improved with T oradol x 2 doses but due to the severity of the pain at home, he was referred for admission for symptom management and urologic evaluation. Admission Exam Per Admitting Provider General: awake, alert, NAD HEENT: no scleral icterus, moist oral mucosa Neck: supple, trachea midline Heart: RRR, no M/G/R Lungs: CTA bilaterally, no W/R/R Abdomen: soft, +BS, mild left flank tenderness but o/w non-tender, no CVA tenderness Extremities: no pedal edema, distal pulses intact and equal Skin: warm, dry, no jaundice or rashes Neurologic: moving all extremities, no focal deficits, no confusion, no dysarthria Discharge Exam General: Alert, oriented. No acute distress Skin: No noted rashes or bruises Psych: Appropriate mood and affect Neuro: No gross deficits HEENT: NC/AT Chest: Nontender to palpation. CV: RRR Resp: Breath sounds clear bilaterally, no increased effort of breathing. Abdomen: Soft, nontender, nondistended. Extremities: No edema in lower extremities bilaterally. Updated Medication List Medication Instructions Recorded Confirmed Type metoclopramide HCl 5 mg tablet 5 mg PO QID 11/25/23 11/25/23 History tamsulosin 0.4 mg capsule 0.4 mg PO DAILY 11/25/23 11/25/23 History ciprofloxacin HCl 500 mg tablet 500 mg PO BID #5 tabs 11/27/23 Rx (Cipro) ibuprofen 600 mg tablet 600 mg PO Q8H PRN pain #30 tabs 11/27/23 Rx metronidazole 500 mg tablet 500 mg PO BID #14 tabs 11/27/23 Rx Hospital Stay Data Consultations 11/25/23 13:32 ED Decision to Admit Stat 11/25/23 16:13 Consult Urology Routine Procedures Performed Operation Date: 11/26/23 13:05 Actual Procedures p Cystoscopy, Retrograde Pyelogram, Left Ureteral Stent Placement(Left) - Francisco Javier Randle, Diagnostic Imagining Performed 11/25/23 11:36 CT abd pelvis wo con Stat 11/26/23 FL retrograde includes kub Routine Abdomen/Pelvis CT 11/25/23 11:36 CT abd pelvis wo con CLINICAL HISTORY: L flank pain TECHNIQUE: Helical axial images of the abdomen and pelvis were obtained. Automated dose lowering techniques and/or adjustment according to patient size were utilized for this exam. This exam was performed without intravenous cont rast. CT DOSE: 1207.66 mGy.cm COMPARISON: None available at the time of this dictation. FINDINGS: Lower chest: No acute abnormality. Liver: Unremarkable. No focal lesions are seen. Gallbladder and biliary tree: No calcified gallstones. Normal caliber wall. No intra- or extrahepatic biliary ductal dilation. Pancreas: Unremarkable, no focal lesions. Spleen: Unremarkable. Adrenals: Unremarkable. Kidneys and ureters: Left hydronephrosis and hydroureter with a 5 mm stone in the proximal ureter. Additional nonobstructive stones are seen. Bladder: Unremarkable. Reproductive organs: Unremarkable. Bowel: A hiatal hernia is seen. The appendix is normal. Lymph nodes Retroperitoneal: Unremarkable. Pelvic: Unremarkable. Mesenteric: Unremarkable. Peritoneum: Normal. Vessels: Atherosclerotic calcifications are seen. Abdominal wall: Bilateral fat-containing inguinal hernias are seen. Bones: Degenerative changes in the visualized spine. IMPRESSION: Left hydronephrosis and hydroureter with a 5 mm obstructive stone in the proximal ureter. ACT 112: Negative or not required by law. Electronically signed by: Feliz Pitts M.D. 11/25/2023 1:01 PM Retrograde Pyelogram 11/26/23 00:00 FL retrograde includes kub CLINICAL HISTORY: CYSTO COMPARISON STUDY: None. FLUOROSCOPY TIME: 14 seconds FLUOROSCOPY IMAGES: 3 Ka,r: 2.8 mGy FINDINGS: Retrograde opacification of the left renal collecting system with placement of a left ureteral stent. The ureteral stent appears in good position. IMPRESSION: Fluoroscopic assistance as above. ACT 112: Negative or not required by law. Electronically signed by: Surendra Love M.D. 11/26/2023 6:11 PM KUB X-Ray 11/26/23 08:16 KUB HISTORY: Left nephrolithiasis Left proximal stone COMPARISON: CT 11/25/2023 FINDINGS: Mild gaseous distention of the large bowel with nonobstructive bowel gas pattern. Renal shadows are obscured by bowel gas. The patient's known punctate left renal calculi are not visualized. Unchanged positioning of the 7 mm left renal calculus at the level of L3-L4. No pneumoperitoneum or pneumatosis. No fracture. IMPRESSION: 1. Unchanged positioning of the 7 mm left ureteral calculus at the level of L3- L4. 2. The patient's known left nephrolithiasis is obscured by bowel gas. ACT 112: Negative or not required by law. The above report was generated using voice recognition software. It may contain grammatical, syntax or spelling errors. Electronically signed by: Nehemias Whittaker M.D. 11/26/2023 1:46 PM Discharge Instructions Given to Patient (Per Discharging Provider) Tanmay, You had stents placed to help with your kidney stone that was causing pain. We are discharging you home with antibiotics to help treat an infection. As discussed, please use the following: -continue with ciprofloxacin 500mg twice a day for 2 and a half more days (total 5 days of treatment) -start taking metronidazole 500mg twice a day for 7 days to treat the "gardnerella-like" bacteria growing in your urine per the recommendations of infectious disease. As we discussed, please also advise your sexual partner to be evaluated for this as well as this typically affects women more than men. The infection is known as bacterial vaginosis. Please keep close follow up with your primary care provider after discharge. please also keep close followup with your Urologist after discharge. They left additional instructions for you below. They recommend you continue with your flomax. As discussed, can take the ibuprofen 600mg three times a day to help with residual pain as well. Stop your home naproxen while taking the ibuprofen. Please do not hesitate to come back to the emergency room if your symptoms worsen or return. It was a pleasure taking care of you while you were here. Total Time Total Time Spent Total Time Spent (In Minutes): 65
[2023-11-27 13:49] VITALS: PULSE 67
--- NOTE | 2023-11-27 16:31 | Communication Note ---
Date of Service: November 27, 2023 Notified by nursing at about 3:45pm that pt's was calling in, angry about pt's urine culture results that showed "gardnerella-like" bacilli. Call placed to pt's at about 3:53pm. Pt's states that the pt was angry that he was advised by this provider that he could have an infection that could have been transmitted from sexual contact. She states she is also angry. Pt's states that they have not had sex for two months and believes that the result was contaminated. Pt's notes that the patient was offended about being asked "how many sexual partners" he had in the context of this discussion. Pt's notes that he was at [facility] and they took a sample that day and did not tell them about this result that same day. It was explained to her to this was a urine culture that grew over several days with those results. Pt's demanded that the test be redone. She was advised to follow up with pt's pcp for a repeat culture. It should be noted that the pt was discharged with po Flagyl which would treat this infection and cause the results of a later repeated urine culture to be skewed. Pt's was advised that the urine culture grew "gardnerella-like" bacteria which is concerning for an infection typically seen in women as a bacterial vaginosis infection. She was advised that it occurs in women sometimes as an imbalance infection and is treated with antibiotics. It can be transmitted to males via sexual contact who can sometimes be colonized and asymptomatic as is possible in this case. Advised that the case was discussed with infectious disease who recommended treatment and that pt's sexual partners be notified and tested and treated as needed. Pt's was adamant that the culture was incorrect. She also stated that her was told multiple times during the day that he would be discharged and wants to know how her insurance is affected by him being discharged at the time he was rather than in the AM. Pt's was advised to follow up with her insurance for those concerns. Hospitalist management made aware of above and [facility] to be notified.
== END 2023-11-27 14:35 | disposition home or self-care (01) ==
LOC: ED 10:51 → SUATTDRO 14:13 → INTOOBSV 14:13 → 3N 14:13